=== PATIENT | male | born 1965 | race Caucasian/White ===

== ENCOUNTER 2019-03-12 11:49 | Day surgery (SDC) | payer OTHER ==
[2019-03-11 17:50] VITALS: BMI 36.9
--- NOTE | 2019-03-12 08:28 | HP ---
[facility] - Chief Complaint Chief Complaint: right hand pain, numbness - Past Medical History Allergies/Adverse Reactions: Allergies Allergy/AdvReac Type Severity Reaction Status Date / Time No Known Allergies Allergy Verified 03/11/19 17:36 - Current Medications Current Medications: Home Medications Medication Instructions Recorded NK [No Known Home Medication] 03/11/19 [facility] Physical Exam - Physical Examination General Appearance: Well Nourished, Well Developed, Alert & Oriented x3 ENT: Clear Lung: Normal air movement Heart: Regular rate & rhythm Extremities: Other (right hand- + tinels, + phalens, emg + cts right elbow- + tinels, + numbness ulna nerve distribution, EMG + cts, ulna neuropathy) Neurological: Intact, Alert, Oriented [facility] Impression/Plan - Impression/Plan Impression: right cts, right cubital tunnel syndrome Operative Procedure: right ctr, ulna nerve transposition Date to be Performed: 03/12/19
[2019-03-12] MEDS ORDERED: PROPOFOL 20 ML ONE ×3 (13:13→15:40)
[2019-03-12] MEDS ORDERED: MIDAZOLAM HCL 2 MG/2 ML SINGLE DOSE VIAL ONE (13:13)
[2019-03-12] MEDS ORDERED: LIDOCAINE HCL 1%, 10 MG/ML (20ML VIAL) ONE (13:30)
[2019-03-12] MEDS ORDERED: BUPIVACAINE HCL/PF 0.5% (5 MG/ML) 30 ML VIAL IJ ONE ×2 (13:31→14:36)
[2019-03-12] MEDS ORDERED: ceFAZolin SODIUM 1 GM VIAL IVPB ONE (14:08)
[2019-03-12] MEDS ORDERED: oxyCODONE HCL 5 MG TABLET PO PRN (14:17)
[2019-03-12] MEDS ORDERED: ONDANSETRON 4 MG/2 ML VIAL IVPUSH PRN (14:17)
[2019-03-12] MEDS ORDERED: PROMETHAZINE HCL 25 MG/1 ML VIAL IVPUSH PRN (14:17)
[2019-03-12] MEDS ORDERED: ceFAZolin SODIUM 1 GM VIAL ONE (14:19)
[2019-03-12] MEDS ORDERED: LACTATED RINGERS SOLUTION 1,000 ML IV SCH (14:30)
[2019-03-12] MEDS ORDERED: LIDOCAINE HCL 1%, 10 MG/ML (50 mL VIAL) IJ ONE (14:36)
[2019-03-12] MEDS ORDERED: KETOROLAC TROMETHAMINE 30 MG/1 ML VIAL ONE (15:02)
[2019-03-12] MEDS ORDERED: EPHEDRINE SULFATE/0.9% NACL/PF 50 MG/10 ML SYRINGE NR ONE (15:32)
--- NOTE | 2019-03-12 16:12 | OP ---
Operative Note - Note: Operative Date: 03/12/19 Pre-Operative Diagnosis: right Cubital tunnel and Carpal Tunnel syndrome Operation: right ulnar nerve transposition, CTR, tenosynovectomy Post-Operative Diagnosis: Same as Pre-op Surgeon: Umer Pretty Anesthesiologist/CUFF SLITTER: Mike Sequeira Anesthesia: General, Local Specimens Removed: tenosynovium Estimated Blood Loss (mls): 15 Drains, Volume Out (mls): 0 Blood Volume Replaced (mls): 0 Fluid Volume Replaced (mls): 1,000 Operative Report Dictated: Yes
[2019-03-12] MEDS ORDERED: oxyCODONE HCL 5 MG TABLET ONE (16:52)
[2019-03-12 17:42] VITALS: TEMP 97.8
[2019-03-12 19:27] VITALS: BP 128/80; PULSE 81
--- NOTE | 2019-03-12 19:28 | OP ---
DATE OF OPERATION: 03/12/2019 PREOPERATIVE DIAGNOSIS: Right cubital tunnel syndrome and carpal tunnel syndrome. POSTOPERATIVE DIAGNOSIS: Right cubital tunnel syndrome and carpal tunnel syndrome. PROCEDURE: 1. Right elbow subcutaneous ulnar nerve transposition. 2. Right wrist carpal tunnel release and tenosynovectomy. SURGEON: Umer Pretty M.D. GLOBAL MANAGER: None. ANESTHESIOLOGIST: Mike Sequeira CRNA ANESTHESIA: LMA anesthesia, local injection 20 mL 0.5% Marcaine 1% lidocaine mix DRAINS: None. COMPLICATIONS: None. SPECIMENS: Tenosynovium right wrist. BLOOD LOSS: 15 mL. BLOOD GIVEN: None. FLUID REPLACEMENT: 700 mL Plasmalyte. INDICATION: This patient is a 53-year-old male with the preoperative diagnosis of right cubital tunnel and carpal tunnel syndrome. After extensive preoperative discussions, he understood the potential risks, complications, alternatives, benefits to surgery versus nonsurgical treatment. DESCRIPTION OF PROCEDURE NUMBER ONE: The patient was brought to the operating room, peripheral IV placed and intravenous sedation was given. One gram of intravenous Ancef was given. MAC anesthesia was induced. A tourniquet was applied to the right upper arm and the right upper extremity was prepped and draped in sterile fashion. The entire case was done under 3.8 loupe magnification. A marking pen was utilized to wes out a longitudinal incision in an already existing skin crease. Twenty mL of 0.5% Marcaine mixed with 1% Lidocaine was injected in and around the surgical incision. The right upper extremity was elevated, exsanguinated with an Esmarch bandage and the tourniquet inflated to 250 mmHg. A No. 15 scalpel blade was utilized to cut down through the skin. Subcutaneous hemostasis was achieved with the bipolar cautery. Dissection was done through the superficial palmar fascia. Self-retaining retractors were placed into the wound. Under direct visualization, the transverse carpal ligament was transected with a No. 15 scalpel blade, exposing the median nerve and the contents of the carpal tunnel. The distal and proximal extents of the release were completed with a Littler scissor and checked with irrigation and my small finger. They were seen to be complete. Limited dissection was done on the radial side of the median nerve and more extensive dissection was done on the ulnar side of the median nerve. The patients nerve was seen to be quite compressed by epineurium and therefore a limited epineurotomy was performed. A Ragnell retractor was used to gently retract the median nerve in a radial direction. The patient had a lot of tenosynovitis and therefore a tenosynovectomy was performed off all 9 flexor tendons. This was passed off the field as tenosynovium right wrist. The floor of the carpal tunnel was checked. There were no abnormal masses or ganglion cysts. The area was copiously irrigated and washed out and closure begun. Undyed 4-0 Vicryl was used to close the deep dermal layer. Final skin reapproximation was done with horizontal mattress 4-0 nylon sutures. The area was then washed and dried, covered with Xeroform, 4x4s, fluffs between the fingers, Webril and a 4-inch plaster roll was utilized to make a volar splint, which was then wrapped with Akanksha and Coban. The tourniquet was taken down after a total tourniquet time of 20 minutes. There were no complications during the case. The patient tolerated the procedure well and was brought to the ambulatory recovery room in stable condition. DESCRIPTION OF PROCEDURE NUMBER 2: The entire case was done under 3.8 loupe magnification. A marking pen was utilized to wes out a longitudinal incision in an already existing skin crease. Twenty mL of 0.5% Marcaine mixed with 1% Lidocaine were injected in and around the surgical incision. The right upper extremity was elevated, exsanguinated with an Esmarch bandage, and the tourniquet inflated to 250 mmHg. A No. 15 scalpel blade was utilized to cut down through the skin. Subcutaneous hemostasis was achieved with the bipolar cautery. Dissection was done through the superficial palmar fascia. Self-retaining retractors were placed into the wound. Under direct visualization, the transverse carpal ligament was transected with a No. 15 scalpel blade, exposing the median nerve and the contents of the carpal tunnel. The distal and proximal extents of the release were completed with a Littler scissor and checked with irrigation and my small finger. They were seen to be complete. Limited dissection was done on the radial side of the median nerve and more extensive dissection was done on the ulnar side of the median nerve. The patients nerve was seen to be quite compressed by epineurium and therefore, a limited epineurotomy was performed. A Ragnell retractor was used to gently retract the median nerve in a radial direction. The patient had a lot of tenosynovitis and therefore, a tenosynovectomy was performed off all 9 flexor tendons. This was passed off the field as tenosynovium, right wrist. The floor of the carpal tunnel was checked. There were no abnormal masses or ganglion cysts. The area was copiously irrigated and washed out and closure begun. Undyed 4-0 Vicryl was used to close the deep dermal layer. Final skin reapproximation was done with horizontal mattress 4-0 nylon sutures. The area was then washed and dried, covered with Xeroform, 4x4s, Fluffs between the fingers, Webril and a 4-inch plaster roll was utilized to make a volar splint, which was then wrapped with Akanksha and Coban. A curvilinear incision was marked out over the medial aspect of the medial epicondyle of the right elbow. Next, a mixture of 10 mL of 0.50% Marcaine and 1% lidocaine was injected in and around the surgical incision. The incision was made with a No. 15 scalpel blade. Subcutaneous hemostasis was achieved with the bipolar cautery. Dissection was done with the Metzenbaum scissors, cauterizing along the way. Weitlaner retractors were placed into the wound. Dissection was done down through the fat layer, cauterizing vessels, exposing the medial epicondyle. The anterior flap was raised underneath the adipose layer for later transposition. The medial epicondyle was exposed. First, the ulnar nerve was identified more proximally around the triceps. A circumferential dissection was done and a Celestino drain was placed around it. Next, in a methodical fashion, circumferential dissection was done moving more distally, freeing up the ulnar nerve from surrounding soft tissue. The roof of the cubital tunnel was released. This was quite tight and the Persaud's ligament between the two heads of the FCU muscle was also identified and opened. There was one point of compression around the medial intramuscular septum. This was also decompressed with a No. 15 scalpel blade. I transposed the nerve. There were no points of compression. I completed the release distally and proximally with my index finger. I again transposed it. It looked good distally and proximally with no points of compression and the pressure was released. The area was copiously irrigated and washed out. Next, using 2-0 Vicryl suture, I tacked down the deep adipose layer to the medial epicondyle with the ulnar nerve transposed anterior to the axis of rotation of the medial epicondyle. I was able to floss the ulnar nerve. There were no points of compression. I then put in other 2-0 Vicryl sutures to hold the transposition position. It was checked along the way. It looked good. The deep adipose layer was closed with 2-0 Vicryl. The deep dermal layer was closed with 4-0 undyed Vicryl. The skin was reapproximated with a running subcuticular 4-0 Biosyn stitch. The area was then washed and dried, covered with Steri-Strips, 4 x 4's and Webril. A 5-inch Ortho-Glass posterior splint was applied, wrapped with Akanksha and Misael bandages. The tourniquet was taken down after a total tourniquet time of one hour. There were no complications during the case. The patient tolerated the procedure quite well and was brought to the ambulatory recovery room in stable condition. ADDENDUM: There was significant compression throughout the entire length of the ulnar nerve at the elbow. Patient had a very hypertrophic accessory medial head of the triceps which was pressing on the nerve, forcing it in a very anterior direction. This caused impingement at the level of the cubital tunnel, as there were very tight bands that the ulnar nerve was under, and because of the anterior translation by the muscle belly, it caused impingement at that spot. This was all released. In addition, there was significant compression under between the two heads of the FCU and the distal aspect of the cubital tunnel. Tourniquet time 75 minutes. Blood loss minimal. Brandt [id number]
--- NOTE | 2019-03-14 18:00 | PATH ---
Surgical Pathology Report Patient Name: KRAIG TROTTER [facility]. Rec. #: [id number] /Age/Gender: 1965 (Age: 53) / M Account: [id number] Location: [facility] SURGICAL Taken: 03/12/2019 Received: 03/13/2019 Reported: 03/14/2019 Physicians: Umer Pretty M.D. Specimen(s) Received TENOSYNOVIUM RIGHT WRIST Clinical History Carpal tunnel syndrome right Final Diagnosis WRIST, RIGHT, TENOSYNOVIUM, CARPAL TUNNEL RELEASE: BENIGN DENSE FIBROCONNECTIVE TISSUE. Electronically Signed Anali Piña M.D. Gross Description Received in formalin labeled "tenosynovium right wrist," is a 1.4 x 0.6 x 0.2 cm aggregate of owen portions of soft tissue, consistent with tenosynovium. The specimen is submitted in toto in one cassette. /03/13/2019 saudi/03/13/2019
== END 2019-03-12 19:00 | disposition home or self-care (01) ==
LOC: JASU-SURG 11:49
PROVIDERS: ATTEND Orthopaedic Surgery
PROC: 01N50ZZ Release Median Nerve, Open Approach (ICD-10-PCS; principal; 2019-03-12 14:30)
PROC: 01N50ZZ Release Median Nerve, Open Approach (ICD-10-PCS; 2019-03-12 14:30)
DX: G56.01 Carpal tunnel syndrome, right upper limb (principal); G56.21 Lesion of ulnar nerve, right upper limb
CPT/HCPCS: 94760